=== PATIENT | female | born 1940 | race Two or more races ===

== ENCOUNTER 2018-06-02 13:00 | Inpatient (IN) | payer OTHER ==
[~2018-06-02] VITALS: Ht 121.9 cm; Wt 5.0 kg
[2018-06-03] MEDS ORDERED: GLUMETZA500 MG PO (07:34)
[2018-06-03] MEDS ORDERED: ATORVASTATIN CA20 MG PO (07:35)
[2018-06-03] MEDS ORDERED: LIPOFEN150 MG PO (07:35)
[2018-06-03] MEDS ORDERED: GLYPIZIDE PO (07:35)
[2018-06-03] MEDS ORDERED: LANTUS (07:36)
[2018-06-04] MEDS ORDERED: COLACE100 MG PO (11:07)
[2018-06-04] MEDS ORDERED: CLONAZEPAM0.5 M1 PO (11:09)
[2018-06-04] MEDS ORDERED: PERCOCET 5-3251 EACH PO (11:09)
== END 2018-06-05 20:07 | DRG 454 ==
LOC: EDSTATUS 13:00 → ADM 13:00 → SURH 13:00 → O/R 06-04 05:10 → SURH 06-04 14:37
PROVIDERS: ADMIT Orthopaedic Surgery Orthopaedic Surgery of the Spine
PROC: 0RG1071 Fusion of Cervical Vertebral Joint with Autologous Tissue Substitute, Posterior Approach, Posterior Column, Open Approach (ICD-10-PCS; 2018-06-04)
PROC: 0RT30ZZ Resection of Cervical Vertebral Disc, Open Approach (ICD-10-PCS; 2018-06-04)
PROC: 07DS3ZZ Extraction of Vertebral Bone Marrow, Percutaneous Approach (ICD-10-PCS; 2018-06-04)
PROC: 4A12X4Z Monitoring of Cardiac Electrical Activity, External Approach (ICD-10-PCS; 2018-06-04)
PROC: 0RG10A0 Fusion of Cervical Vertebral Joint with Interbody Fusion Device, Anterior Approach, Anterior Column, Open Approach (ICD-10-PCS; principal; 2018-06-04 07:00)
DX: M47.12 Other spondylosis with myelopathy, cervical region (principal); M50.023 Cervical disc disorder at C6-C7 level with myelopathy; E11.9 Type 2 diabetes mellitus without complications; G83.82 Anterior cord syndrome